=== PATIENT | female | born 1995 | race African-American/Black ===

== ENCOUNTER 2017-01-02 00:06 | Emergency (ER) | payer OTHER ==
--- NOTE | 2017-01-02 00:08 | ED GENERAL ADULT ---
History of Present Illness General Chief Complaint: Altered Mental Status Stated Complaint: ALTERED MENTAL STATUS Source: old records, EMS Exam Limitations: intoxication Vital Signs & Intake/Output Vital Signs & Intake/Output Vital Signs Date Time Temp Pulse Resp B/P B/P Pulse O2 O2 Flow FiO2 Mean Ox Delivery Rate 01/02 53 96 Room Air 01/02 001 96.4 72 14 117/55 100 Room Air Triage Nurses Notes Reviewed? yes HPI: Patient was at a constitution party and was drinking her people at the constitution party. Patient was found unresponsive covered in vomitus in the bathroom. EMS was contacted. The patient was brought in for evaluation. Past History Travel History Traveled to [facility] past 21 day No Medical History Any Pertinent Medical History? none Surgical History Surgical History: non-contributory Psychosocial History Tobacco Use: Cognitive Impairment ETOH Use: DRANK TONIGHT, ?CHRONICITY Illicit Drug Use: UNKNOWN Family History Hx Contributory? No Review of Systems Review of Systems Constitutional: Reports: see HPI. GI: Reports: see HPI, vomiting. Physical Exam Physical Exam General Appearance: moderate distress, intoxicated Head: atraumatic Eyes: Bilateral: PERRL, other (SLUGGISH). Ears, Nose, Throat: normal pharynx, normal ENT inspection Neck: normal inspection, supple, full range of motion Respiratory: normal breath sounds, chest non-tender, no respiratory distress, lungs clear Cardiovascular: regular rate/rhythm, normal peripheral pulses Gastrointestinal: normal bowel sounds, soft, no organomegaly Back: normal inspection Extremities: normal inspection, normal capillary refill, normal range of motion, no edema Neurologic/Psych: WITHDRAWLS TO PAINFUL STIMULAE Lymphatic: no anterior cervical shailesh Core Measures ACS in differential dx? No CVA/TIA Diagnosis: No Severe Sepsis Present: No Septic Shock Present: No Progress Differential Diagnoses I considered the following diagnoses in my evaluation of the patient: [Alcohol intoxication, altered abnormality, drug intoxication, trauma with head injury] Plan of Care: Orders Procedure Date/time Status Straight Cath 01/03 8 Active URINE DRUGS OF ABUSE 01/03 8 Complete URINALYSIS 01/03 8 Complete HUMAN BETA HCG SCREEN 01/03 8 Complete ETHANOL 01/03 8 Complete COMPREHENSIVE METABOLIC PANEL 01/03 8 Complete CBC WITHOUT DIFFERENTIAL 01/03 8 Complete Laboratory Tests 01/02/17 0032: Serum Alcohol 186.0 01/02/17 003: Anion Gap 21 H, Estimated GFR > 60, BUN/Creatinine Ratio 18.8, Glucose 133 H, Calcium 9.5, Total Bilirubin 1.0, AST 25, ALT 32, Alkaline Phosphatase 84, Total Protein 7.6, Albumin 4.4, Globulin 3.2, Albumin/Globulin Ratio 1.4, Total Beta HCG NEGATIVE, CBC w Diff NO MAN DIFF REQ, RBC 4.51, MCV 83.0, MCH 27.8, RDW 14.0 , MPV 8.4, Gran % 74.7, Lymphocytes % 17.8 L, Monocytes % 6.4, Eosinophils % 0, Basophils % 1.1, Absolute Granulocytes 10.8 H, Absolute Lymphocytes 2.6, Absolute Monocytes 0.9 H, Absolute Eosinophils 0, Absolute Basophils 0.2, PUBS MCHC 33.4, Urine Opiates Screen < 100.00, Methadone Screen < 40, Barbiturate Screen < 60, Ur Phencyclidine Scrn < 6.00, Amphetamines Screen < 100, U Benzodiazepines Scrn < 85, Urine Cocaine Screen < 50, Urine Cannabis Screen < 5.00, Urinalysis LIGHT H, Urine Color YEL, Urine Clarity CLEAR, Urine pH 6.0, Ur Specific Morris >= 1.030, Urine Protein TRACE H, Urine Ketones 40 H, Urine Nitrite NEG, Urine Bilirubin NEG, Urine Urobilinogen 0.2, Ur Leukocyte Esterase NEG, Ur Microscopic SEDIMENT EXAMINED, Urine RBC 1-3, Urine WBC 1-3 H, Ur Epithelial Cells FEW, Urine Bacteria FEW H, Urine Mucus MOD H, Urine Hemoglobin NEG, Urine Glucose NEG Initial ED EKG: none Departure Departure Disposition: HOME OR SELF CARE Condition: Stable Clinical Impression Primary Impression: Alcohol intoxication Additional Instructions: RETURN FOR ANY CONCERNS Departure Forms: Customer Survey General Discharge Information Critical Care Note Critical Care Note Critical Care Time: non-applicable
[2017-01-02 00:11] VITALS: BP 117/55
[2017-01-02 00:52] LABS: ABSOLUTE BASOPHIL COUNT 0.2 /CUMM (0.0-0.2); ABSOLUTE EOSINOPHIL COUNT 0 /CUMM (0.0-0.7); ABSOLUTE GRANULOCYTE CT 10.8 /CUMM (1.4-6.5); ABSOLUTE LYMPH COUNT 2.6 /CUMM (1.2-3.4); ABSOLUTE MONOCYTE COUNT 0.9 /CUMM (0.10-0.60); BASOPHIL % 1.1 % (0.0-2.0); EOSINOPHIL % 0 % (0-5); GRANULOCYTE % 74.7 % (42.2-75.2); HEMATOCRIT 37.4 % (37-47); MEAN CORPUSCULAR HGB 27.8 PG (27.0-31.0); MEAN CORPUSCULAR HGB CONC 33.4 G/DL (33.0-37.0); MEAN PLATELET VOLUME 8.4 FL (7.4-10.4); PLATELET COUNT 299 /CUMM (130-400); RED BLOOD CELL CT 4.51 /CUMM (4.20-5.40); WHITE BLOOD CELL COUNT 14.4 /CUMM (4.8-10.8)
== END 2017-01-02 03:22 ==
LOC: ERH 00:06
PROVIDERS: Emergency Medicine
DX: F10.129 Alcohol abuse with intoxication, unspecified (principal)
CPT/HCPCS: 80307; 81001; 96374; G0480; J2405